=== PATIENT | female | born 1950 | race Caucasian/White ===

== ENCOUNTER 2016-10-23 07:55 | Day surgery (SDC) | payer MEDICARE ==
[~2016-10-23] VITALS: Ht 167.6 cm; Wt 88.5 kg
[~2016-10-23 07:55] MED LIST: 0.9% Sodium Chloride 1,000 ML IV PRN; ALBU0.63 INHALATION; ALBU18HF INH; CLON0.1T PO; DIPH1TAB PO; ELUX100T PO; LISI40TA PO; MELO7.5O PO; OMEP40CA36 PO; Sodium Chloride LOK Flush 10 mL Syringe IV PRN; TOLT4CAP13 PO; TRAZ-118 PO; fentaNYL-PF 50 mCg/mL 2 mL Inj IVPUSH PRN
[2016-10-23 08:12] VITALS: BP 108/52; PULSE 78; RESP 16; O2SAT 94
[2016-10-23 09:23] VITALS: BP 144/99; PULSE 66; RESP 15; O2SAT 96
[2016-10-23 09:31] VITALS: BP 158/89; PULSE 62; RESP 15; O2SAT 98
[2016-10-23 09:41] VITALS: BP 164/79; PULSE 63; RESP 15; O2SAT 97
--- NOTE | 2016-10-23 20:46 | ENDO ---
[address] [address] ENDOSCOPY PROCEDURE PATIENT: CURTIS BORRERO : 1950 MR#: [id number] ADMIT: 10/23/2016 JOB ID: [id number] PRIMARY PROVIDER: LUCAS Trevizo PROCEDURE: Colonoscopy with biopsies. INDICATIONS: A 66-year-old female with longstanding erratic stools with both constipation and diarrhea. EQUIPMENT: PC-H180AL. SEDATION: Two mg Versed, 50 mcg fentanyl. COMPLICATIONS: None identified. BOWEL PREPARATION: Fair. PROCEDURE INFORMATION: After the risks and benefits were explained, written and verbal informed consent was obtained, the patient was brought into the endoscopy suite and placed into the left lateral decubitus position. Sedation was achieved using the above-stated medications with the addition of oxygen via nasal cannula. A digital rectal examination was accomplished. No significant pathology appreciated. The scope was introduced into the rectum and advanced under direct visualization to the cecum as identified by the appendiceal orifice and ileocecal valve. The scope was slowly withdrawn to carefully examine the mucosa for any defects or lesions. Multiple direct views were made through the dentate line for exclusion of pathology. The colon was decompressed. The scope removed from the patient who tolerated the procedure well. FINDINGS: The patient had rather extensive diverticulosis through the sigmoid. Slightly tortuous sigmoid. No significant polyps or mass lesions throughout. No evidence of inflammatory bowel disease. Random biopsies were taken for exclusion of microscopic colitis. The patient had some residual fibrous stool debris consistent with suboptimal bowel evacuation. ENDOSCOPIC DIAGNOSES: 1. Diverticulosis. 2. Otherwise visually unremarkable colonoscopy. RECOMMENDATIONS: 1. Await histopathology. 2. The patient is encouraged to take daily fiber supplementation with 2 tablespoons of ground flaxseed fiber mixed with 8 ounces of water or juice at least once, maybe twice daily. I have encouraged her to additionally add in some regular organic sauerkraut. I suspect this will markedly improve her bowel consistency. I suspect the diarrhea she has to be related to intermittent overflow. 3. Follow up in GI Clinic with Jaymie Darling in about 4-6 weeks.
--- NOTE | 2016-10-24 10:47 | PATH ---
SURGICAL PATHOLOGY Attending Physician:Payton Gillespie CASE STATUS: Signed Out PATIENT NAME: CURTIS FLOREZ PID: [id number] : 1950 DATE COLLECTED:10/23/2016 20:31 SPECIMEN: Colon, Biopsy CLINICAL HISTORY: 1). RANDOM COLON BIOPSIES FINAL DIAGNOSIS: Random Colon Biopsies: Fragments of normal appearing colon mucosa. Negative for significant architectural distortion. Negative for significant inflammation, dysplasia and malignancy. ICD10: R19.7 GROSS DESCRIPTION: The specimen is received in one formalin filled container labeled with the patient's name, sublabeled "random colon" and consists of 2 portions of tissue which aggregate to 0.3 x 0.3 x 0.2 CM. The specimen is entirely submitted in one cassette. 10/23/2016 [facility] ICD-9 CODES: CPT CODES: 1: 28915 Electronically Signed Out Rodrigo Arceo MD [facility] [address] [facility], [place] [address] Technical component performed at [facility], [address] [place] [address] Ave[address], [address]
== END 2016-10-23 23:59 | disposition home or self-care (01) ==
LOC: END 07:55
PROVIDERS: ATTEND Internal Medicine Gastroenterology
DX: K57.30 Diverticulosis of large intestine without perforation or abscess without bleeding (principal); K59.00 Constipation, unspecified; K58.0 Irritable bowel syndrome with diarrhea; E03.9 Hypothyroidism, unspecified; E78.5 Hyperlipidemia, unspecified; J45.909 Unspecified asthma, uncomplicated; M79.7 Fibromyalgia; K21.9 Gastro-esophageal reflux disease without esophagitis; E72.11 Homocystinuria; D86.9 Sarcoidosis, unspecified; I10 Essential (primary) hypertension; E55.9 Vitamin D deficiency, unspecified; E88.81 Metabolic syndrome and other insulin resistance; E66.9 Obesity, unspecified; Z68.34 Body mass index [BMI] 34.0-34.9, adult; Z79.51 Long term (current) use of inhaled steroids
CPT/HCPCS: 45380; 99153; G0500; J7030